=== PATIENT | male | born 1975 | race African-American/Black ===

== ENCOUNTER 2019-12-17 | Emergency (ER) | payer OTHER ==
[~2019-12-17] MED LIST: AMOXICILLIN500 MG OR; AMOXICILLIN500 MG PO; ASPIRIN EC81 MG PO; BACTRIM DS1 TAB PO; BAYER ASA325 MG OR; BENTYL10 MG PO; CEPHALEXIN500 MG OR; CEPHALEXIN500 MG PO; DIABETA2.5 MG OR; FLEXERIL OR; GLIPIZIDE ER2.5 MG PO; HUMALOG100 MG/ML SC; LANTUS100 MG/ML SC; LEVEMIR SC; MEDDOSEPAK OR; METFORMIN1000 MG PO; METRONIDAZOL500 MG PO; MUCINEX D1 TAB PO; NAPROSYN500 MG PO; PENICILLN VK500 MG PO; PRILOSEC20 MG/CAP PO; PROMETHAZINE25 MG OR; ROBITUSSIN AC10 ML PO; ULTRAM50 MG OR; ZITHROMAX250 MG PO; ZOFRAN ODT4 MG PO; [UNRECOGNIZED DRUG - REMARK]
[2019-12-17] MEDS ORDERED: BACTRIM DS1 TAB PO (07:47)
[2019-12-17] MEDS ORDERED: CEPHALEXIN500 M1 PO (07:47)
--- NOTE | 2019-12-19 10:39 | NUR ---
Left message for pt to return call to Pharmacy. Need to review wound culture results and antibiotic therapy with patient.
== END 2019-12-17 09:10 | disposition home or self-care (01) | DRG 153 ==
PROC: 0H98XZZ Drainage of Buttock Skin, External Approach (ICD-10-PCS; principal; 2019-12-17)
DX: J06.9 Acute upper respiratory infection, unspecified (principal); L05.01 Pilonidal cyst with abscess; E11.9 Type 2 diabetes mellitus without complications; F17.200 Nicotine dependence, unspecified, uncomplicated; Z79.84 Long term (current) use of oral hypoglycemic drugs; B95.62 Methicillin resistant Staphylococcus aureus infection as the cause of diseases classified elsewhere

== ENCOUNTER 2019-12-23 | Emergency (ER) | payer OTHER ==
[~2019-12-23] MED LIST changes: +CEPHALEXIN500 M1 PO
[2019-12-23] MEDS ORDERED: BACTRIM DS1 TAB PO (09:44)
[2019-12-23] MEDS ORDERED: CEPHALEXIN500 MG PO (09:44)
== END 2019-12-23 09:59 | disposition home or self-care (01) | DRG 153 ==
DX: J06.9 Acute upper respiratory infection, unspecified (principal); E11.9 Type 2 diabetes mellitus without complications; F17.210 Nicotine dependence, cigarettes, uncomplicated

== ENCOUNTER 2020-04-21 23:22 | Observation (INO) | payer SELFPAY ==
[~2020-04-21] VITALS: Ht 172.7 cm; Wt 75.0 kg
[2020-04-21] MEDS ORDERED: LANTUS100 UNIT/M SC (23:38)
[2020-04-21] MEDS ORDERED: HUMALOG100 UNIT/M SC (23:39)
[2020-04-21] MEDS ORDERED: METFORMIN500 M2 PO (23:39)
[2020-04-21 23:56] LABS: HEMATOCRIT 43.1 % (39.0-50.0); HEMOGLOBIN 14.6 g/dl (14.0-18.0); IMMATURE GRANULOCYTES 0.4 % (0.0-5.0); MEAN CORPUSCULAR HGB 33.2 pG CALC (26.0-32.0); MEAN CORPUSCULAR HGB CONC 33.9 g/dL CAL (32.0-36.0); NEUT# 7.07 thou/uL (1.82-7.42); RED BLOOD COUNT 4.4 mill/uL (4.70-6.10); RED CELL DISTRI WIDTH 11.9 % (11.5-15.5)
[2020-04-21 23:58] LABS: URINE BLOOD DIPSTICK NEGATIVE (NEGATIVE); URINE COLOR YELLOW; URINE GLUCOSE - DIPSTICK 500 mg/dL (NEGATIVE); URINE KETONE 15 mg/dL (NEGATIVE); URINE LEUK ESTERASE NEGATIVE (NEGATIVE); URINE NITRITE - DIPSTICK NEGATIVE (Negative); URINE PROTEIN - DIPSTICK 100 mg/dL (NEG-TRACE); URINE SPECIFIC GRAVITY >=1.030; URINE UROBILINOGEN - DIPSTICK 0.2 E.U./dL (0.2)
[2020-04-22] LABS: URINE BILIRUBIN - DIPSTICK SMALL (NEGATIVE)
[2020-04-22 00:04] LABS: URINE EPITHELIAL CELLS MODERATE EPI/hpf (0-FEW)
[2020-04-22 00:05] LABS: URINE BACTERIA MODERATE hpf; URINE HYALINE CAST MODERATE lpf (NONE-RARE)
[2020-04-22 00:06] LABS: URINE FINE GRAN CAST FEW lpf
[2020-04-22 00:11] LABS: ALBUMIN 4.3 g/dL (3.2-5.0); ALKALINE PHOSPHATASE 86 u/l (38-126); BILIRUBIN, TOTAL 1.4 mg/dL (0.0-1.4); BUN 11 mg/dL (9-20); BUN/CREATININE RATIO 8 (12-20 (CALC)); CHLORIDE 98 mmol/l (95-108); CREATININE 1.4 mg/dL (0.7-1.3); GFR 55 ML/MIN (>=60 (CALC)); GFR FOR AFR.AMER. > 60 ML/MIN (>=60 (CALC)); LIPASE 67 u/l (23-300); POTASSIUM 3.2 mmol/l (3.5-5.1); SGOT/AST 21 u/l (17-59); TOTAL PROTEIN 7.6 g/dL (6.3-8.2)
[2020-04-22 00:17] LABS: ANION GAP 10 (6-22 (CALC)); CARBON DIOXIDE 28 mmol/l (22-30); SODIUM 133 mmol/l (137-146)
[2020-04-22 00:19] LABS: MYOGLOBIN 47 ng/mL (0 - 121)
[2020-04-22 01:56] VITALS: BP 118/76
[2020-04-22 03:42] VITALS: BP 107/65
[2020-04-22 09:04] VITALS: BP 123/71
[2020-04-22 10:30] VITALS: BP 116/71
[2020-04-22] MEDS ORDERED: HUMALOG100 UNIT/M SC (14:11)
[2020-04-22] MEDS ORDERED: METFORMIN500 M2 PO (14:11)
[2020-04-22] MEDS ORDERED: LANTUS100 UNIT/M SC (14:11)
[2020-04-22] MEDS ORDERED: DOXYCYCL HYC100 MG PO (14:19)
[2020-04-22 15:00] VITALS: BP 107/69
== END 2020-04-22 15:50 | disposition home or self-care (01) | DRG 313 ==
LOC: ED 23:22 → ED-I 04-22 00:41 → ED 04-22 00:56 → ED-I 04-22 00:57 → MS2 04-22 01:15
PROVIDERS: Emergency Medicine; ADMIT Internal Medicine; ATTEND Internal Medicine
DX: R07.9 Chest pain, unspecified (principal); N39.0 Urinary tract infection, site not specified; F12.90 Cannabis use, unspecified, uncomplicated; E11.9 Type 2 diabetes mellitus without complications; E78.5 Hyperlipidemia, unspecified; F17.210 Nicotine dependence, cigarettes, uncomplicated; Z79.4 Long term (current) use of insulin; Z20.828 Contact with and (suspected) exposure to other viral communicable diseases
CPT/HCPCS: G0378; S0164

== ENCOUNTER 2020-09-14 21:19 | Emergency (ER) | payer SELFPAY ==
[~2020-09-14] VITALS: Ht 172.7 cm; Wt 77.2 kg
[~2020-09-14 21:19] MED LIST changes: +DOXYCYCL HYC100 MG PO; +HUMALOG100 UNIT/M SC; +LANTUS100 UNIT/M SC; +METFORMIN500 M2 PO
[2020-09-14] MEDS ORDERED: BACTRIM DS1 TAB PO (21:59)
[2020-09-14 22:04] VITALS: BP 126/79
== END 2020-09-14 22:14 | disposition home or self-care (01) | DRG 603 ==
LOC: ED 21:19
PROC: 0H9HXZZ Drainage of Right Upper Leg Skin, External Approach (ICD-10-PCS; principal; 2020-09-14)
DX: L02.415 Cutaneous abscess of right lower limb (principal); L98.9 Disorder of the skin and subcutaneous tissue, unspecified; E11.9 Type 2 diabetes mellitus without complications; K21.9 Gastro-esophageal reflux disease without esophagitis; F17.210 Nicotine dependence, cigarettes, uncomplicated; Z86.14 Personal history of Methicillin resistant Staphylococcus aureus infection; Z79.4 Long term (current) use of insulin

== ENCOUNTER 2020-10-27 12:48 | Emergency (ER) | payer SELFPAY ==
[~2020-10-27] VITALS: Ht 172.7 cm; Wt 77.3 kg
[2020-10-27 14:30] VITALS: BP 133/82
== END 2020-10-27 15:30 | disposition home or self-care (01) | DRG 866 ==
LOC: ED 12:48
DX: B34.9 Viral infection, unspecified (principal); E11.9 Type 2 diabetes mellitus without complications; K21.9 Gastro-esophageal reflux disease without esophagitis; F17.200 Nicotine dependence, unspecified, uncomplicated; Z79.4 Long term (current) use of insulin; Z20.822 Contact with and (suspected) exposure to COVID-19

== ENCOUNTER 2021-01-31 12:56 | Emergency (ER) | payer SELFPAY ==
[2021-01-31] MEDS ORDERED: TESSALON PERLE100 MG PO (16:59)
[2021-01-31 17:00] VITALS: BP 119/68
== END 2021-01-31 17:00 | disposition home or self-care (01) | DRG 866 ==
LOC: ED 12:56
DX: B34.9 Viral infection, unspecified (principal); E11.9 Type 2 diabetes mellitus without complications; K21.9 Gastro-esophageal reflux disease without esophagitis; Z79.4 Long term (current) use of insulin; F17.200 Nicotine dependence, unspecified, uncomplicated; Z20.822 Contact with and (suspected) exposure to COVID-19

== ENCOUNTER 2021-04-10 18:20 | Emergency (ER) | payer SELFPAY ==
[~2021-04-10] VITALS: Ht 172.7 cm; Wt 80.0 kg
[~2021-04-10 18:20] MED LIST changes: +TESSALON PERLE100 MG PO
[2021-04-10] MEDS ORDERED: CIPROFLOXACN500 MG PO (19:06)
[2021-04-10] MEDS ORDERED: BACTRIM DS1 TAB PO (19:06)
[2021-04-10 19:26] VITALS: BP 148/88
== END 2021-04-10 19:26 | disposition home or self-care (01) | DRG 603 ==
LOC: ED 18:20
DX: L03.115 Cellulitis of right lower limb (principal); E11.9 Type 2 diabetes mellitus without complications; Z79.4 Long term (current) use of insulin; K21.9 Gastro-esophageal reflux disease without esophagitis; F17.200 Nicotine dependence, unspecified, uncomplicated; Z86.14 Personal history of Methicillin resistant Staphylococcus aureus infection

== ENCOUNTER 2021-04-12 20:22 | Inpatient (IN) | payer SELFPAY ==
[~2021-04-12] VITALS: Ht 172.7 cm; Wt 73.0 kg
[~2021-04-12 20:22] MED LIST changes: +CIPROFLOXACN500 MG PO
[2021-04-12 21:29] LABS: HEMATOCRIT 39.4 % (39.0-50.0); HEMOGLOBIN 13.2 g/dl (14.0-18.0); IMMATURE GRANULOCYTES 0.4 % (0.0-5.0); MEAN CELL VOLUME 99.5 fL CALC (80.0-100.0); MEAN CORPUSCULAR HGB 33.3 pG CALC (26.0-32.0); MEAN CORPUSCULAR HGB CONC 33.5 g/dL CAL (32.0-36.0); NEUT# 12.9 thou/uL (1.82-7.42); RED BLOOD COUNT 3.96 mill/uL (4.70-6.10); RED CELL DISTRI WIDTH 11.4 % (11.5-15.5)
[2021-04-12 21:40] LABS: ANION GAP 16 (6-22 (CALC)); BUN 15 mg/dL (9-20); BUN/CREATININE RATIO 11 (12-20 (CALC)); CARBON DIOXIDE 29 mmol/l (22-30); CHLORIDE 89 mmol/l (95-108); CREATININE 1.3 mg/dL (0.7-1.3); GFR 60 ML/MIN (>=60 (CALC)); GFR FOR AFR.AMER. > 60 ML/MIN (>=60 (CALC)); SODIUM 129 mmol/l (137-146)
[2021-04-12 21:48] LABS: POTASSIUM 4.6 mmol/l (3.5-5.1)
[2021-04-12 22:11] LABS: ALKALINE PHOSPHATASE 85 u/l (38-126); C-REACTIVE PROTEIN 2.5 mg/dL (0-0.9); SGOT/AST 16 u/l (17-59); TOTAL PROTEIN 7.4 g/dL (6.3-8.2)
[2021-04-12 22:13] LABS: BILIRUBIN, TOTAL 0.4 mg/dL (0.0-1.4)
--- NOTE | 2021-04-12 23:43 | NUR ---
AWAITING URINE SAMPLE. PT AGREES WITH PLAN FOR ADMISSION.
--- NOTE | 2021-04-13 01:00 | NUR ---
REPORT GIVEN TO KASSANDRA HAN FOR ADMIT TO MEDICAL FLOOR.
--- NOTE | 2021-04-13 01:15 | NUR ---
PATIENT BEING TRANSPORTED TO FLOOR VIA WHEELCHAIR BY THIS RN. NO DISTRESS VSS
--- NOTE | 2021-04-13 01:30 | NUR ---
RECEIVED PT FROM ER VIA WHEELCHAIR. PT ORIENTD TO [place], PLACE ATD TIME, REFUSED PAIN AT THIS ITME. EDUCATED ABOUT RULES AND VISITORS HOURS FOR MED SURGE. EDUCATED ABOUT PLAN OF CARE, MEDICATIONS, FALLS AND INFECTIONS PRECAUTIONS. ADMISION DATA DONE, ADMISSION ASSESMENT DOCUMENTED. RT FOOT ARE PULSE PALPABLS, WARM AND DRY.
--- NOTE | 2021-04-13 04:19 | NUR ---
HOURLY VISIT. PT OBSERVED CALM AND SLEEP. RE-EDUCATED ABOIT DIABETIC DIET, FALLS AND INFECTION PREVENTION.
[2021-04-13 04:48] VITALS: BP 102/58
[2021-04-13 07:15] VITALS: BP 115/66
--- NOTE | 2021-04-13 09:05 | NUR ---
S: LAUREN JORDAN is a 45 M who presents with cellulitis. He has a history of DM, +TOB, +ETOH, MRSA. All medications in patient's chart were reviewed. O: VS: BP 115/66 mmHg, PP 66 bpm , RR 18 bpm ,T 97.4 F W 73 KG , HT 68 inch , Scr=1.3 MG/DL ,CrCl= 74.9 ML/MIN A: Blood culture is pending. P: Patient is on ZOSYN 3.375 G Q6H. Vancomycin ordered for pharmacy to dose. Start Vancomycin 1 G IV Q12H. Vancomycin trough is drawn before the 4th dose on 04/14/21 @ 1030. Vancomycin goal trough is between 10-15 mcg/ml. Pharmacy will follow and or advise on antibiotics use as needed.
--- NOTE | 2021-04-13 12:05 | NUR ---
PATIENT LAYING IN BED EATING LUNCH AT THIS TIME. PATIENT STATES HE FOOT IS THROBBING A LITTLE ADVISED PATIENT THAT I WILL LET PHYSICIAN KNOW TO ORDER SOMETHING FOR PAIN. MALGORZATA LOO APRN NOTIFIED AT THIS TIME. CHEO ARE UP CALL LIGHT [facility].
[2021-04-13 12:43] LABS: ALBUMIN 3.3 g/dL (3.2-5.0); ALKALINE PHOSPHATASE 71 u/l (38-126); BUN 17 mg/dL (9-20); BUN/CREATININE RATIO 12 (12-20 (CALC)); CARBON DIOXIDE 26 mmol/l (22-30); CREATININE 1.5 mg/dL (0.7-1.3); GFR 51 ML/MIN (>=60 (CALC)); GFR FOR AFR.AMER. > 60 ML/MIN (>=60 (CALC)); POTASSIUM 3.9 mmol/l (3.5-5.1); SGOT/AST 20 u/l (17-59); SODIUM 134 mmol/l (137-146); TOTAL PROTEIN 6.5 g/dL (6.3-8.2)
[2021-04-13 12:49] LABS: ANION GAP 11 (6-22 (CALC)); BILIRUBIN, TOTAL 0.9 mg/dL (0.0-1.4); CHLORIDE 101 mmol/l (95-108)
--- NOTE | 2021-04-13 15:53 | NUR ---
PATIENT GIVEN LORITAB 5/325MG FOR PAIN OF 5 IN RIGHT FOOT AT THIS TIME. WILL CONTINUE TO MONITOR.
--- NOTE | 2021-04-13 17:35 | NUR ---
PATIENT RESTING IN BED AT THIS TIME. SIDERAILS ARE UP CALL LIGHT WITHIN REACH AT THIS TIME.
[2021-04-13 18:50] VITALS: BP 111/67
[2021-04-13 19:49] VITALS: BP 110/64
--- NOTE | 2021-04-13 20:00 | NUR ---
PATIENT ALERT ORINTED ABLE TO MAKE NEEDS KNONW, WITH ONGOING IV OF NS @ 125CC/HR INFUSING WELL ON RFA, LUNG SOUNDS CLEAR, ACTIVE BOWEL SOUNDS LBM 04/13, C/O PAIN ON RT FOOT, WILL MEDICATE, FOOT ULCER ON RT FOOT OPEN TO AIR PER ORDER, CALL LIGHT AT REACH.
--- NOTE | 2021-04-14 | NUR ---
PATIENT RESTING IN BED, EYES CLOSED, VANCOMYCIN IV INFUSING AT THIS TIME, BREATHING UNLABORED CALL LIGHT AT REACH.
--- NOTE | 2021-04-14 04:30 | NUR ---
PATIENT RESTING IN BED EYES CLOSED, DUE ZOSYN GIVEN AT THIS TIME, CALL LIGHT AT REACH.
[2021-04-14 05:14] VITALS: BP 127/73
[2021-04-14 05:20] LABS: HEMATOCRIT 37.5 % (39.0-50.0); HEMOGLOBIN 12.6 g/dl (14.0-18.0); MEAN CELL VOLUME 100.3 fL CALC (80.0-100.0); MEAN CORPUSCULAR HGB 33.7 pG CALC (26.0-32.0); MEAN CORPUSCULAR HGB CONC 33.6 g/dL CAL (32.0-36.0); RED BLOOD COUNT 3.74 mill/uL (4.70-6.10); RED CELL DISTRI WIDTH 11.3 % (11.5-15.5)
[2021-04-14 05:54] LABS: ALBUMIN 3.2 g/dL (3.2-5.0); ALKALINE PHOSPHATASE 70 u/l (38-126); ANION GAP 10 (6-22 (CALC)); BILIRUBIN, TOTAL 0.6 mg/dL (0.0-1.4); BUN 12 mg/dL (9-20); BUN/CREATININE RATIO 13 (12-20 (CALC)); CARBON DIOXIDE 26 mmol/l (22-30); CHLORIDE 104 mmol/l (95-108); GFR > 60 ML/MIN (>=60 (CALC)); GFR FOR AFR.AMER. > 60 ML/MIN (>=60 (CALC)); SGOT/AST 21 u/l (17-59); SODIUM 136 mmol/l (137-146); TOTAL PROTEIN 6.4 g/dL (6.3-8.2)
[2021-04-14 06:37] LABS: URINE BILIRUBIN - DIPSTICK NEGATIVE (NEGATIVE); URINE BLOOD DIPSTICK NEGATIVE (NEGATIVE); URINE COLOR YELLOW; URINE GLUCOSE - DIPSTICK 500 mg/dL (NEGATIVE); URINE KETONE NEGATIVE (NEGATIVE); URINE LEUK ESTERASE NEGATIVE (NEGATIVE); URINE PH 5.5 (4.5-8.0); URINE PROTEIN - DIPSTICK TRACE mg/dL (NEG-TRACE); URINE SPECIFIC GRAVITY >=1.030; URINE UROBILINOGEN - DIPSTICK 0.2 E.U./dL (0.2)
[2021-04-14 06:39] LABS: URINE NITRITE - DIPSTICK NEGATIVE (Negative)
--- NOTE | 2021-04-14 07:00 | NUR ---
SHIFT CHANGE REPORT, PT SLEELPING BUT AROUSES TO VERBAL STIMULI, ORIENED, IVF INFUSING, C/O RIGHT FOOT PAIN, PAIN CONCERN ADDRESSED, CALL NICOLE IN REACH AND BED LOCKED IN LOWEST POSITION.
[2021-04-14 08:31] VITALS: BP 133/77
--- NOTE | 2021-04-14 10:45 | NUR ---
PT FOUND IN BR SHOWERING, DID NOT INFORM STAFF HE WANTED TO SHOWER THEREFORE IV SITE NOT COVERED. EDUCATED/INFORMED ON ASKING FOR ASSISTANCE FOR SAFE PERFORMANCE OF ADL'S, STATED UNDERSTANDING.
--- NOTE | 2021-04-14 11:00 | NUR ---
TRANSPORTED OFF UNIT VIA W/C TO IMAGING PROCEDURE AND RETURNED, SETTLED IN BED, CALL NICOLE IN REACH.
--- NOTE | 2021-04-14 12:59 | NUR ---
S: LAUREN JORDAN is a 45 M who presents with Cellulitis. He has a history of Diabetis Mellitus, Hyperlipidemia,MRSA and GERD. All medications in patient's chart were reviewed. O: VS: BP 133/77 mmHg, P 68 bpm, RR 18 bpm,T 98.3 F W 73kg, HT 68 inches, Scr= 1.0 mg.dL,CrCl= 97.33 <ml/min> Vancomycin Trough Level 7 ug/mL A: Blood culture is pending. Wound culture is pending. P: Patient is on Zosyn 3.375g IV Q6H. Vancomycin ordered for pharmacy to dose. Continue Vancomycin 1250mg IV Q12H. Vancomycin trough is drawn before the 4th dose on 04/14/21 2230. Vancomycin goal trough is between 10-15 mcg/ml. Pharmacy will follow and or advise on antibiotics use as needed.
[2021-04-14 15:39] VITALS: BP 110/65
--- NOTE | 2021-04-14 16:00 | NUR ---
RESTING IN BED, SPOUSE VISITING, STATES FOOT PAIN NOT CONTROLLED WELL, WARM COMPRESS APPLIED AND FOOT ELEVATED
--- NOTE | 2021-04-14 17:28 | NUR ---
PATIENT ACCUCHECK 70, NURSE NOTIFIED.
[2021-04-14 19:00] VITALS: BP 122/70
--- NOTE | 2021-04-14 22:03 | NUR ---
PATIENT RESTING QUIETLY IN BED. RIGHT FOOT ELEVATED. C/O PAIN ADDRESSED WITH PRN LORTAB WITH SOME GOOD EFFECT. ASSESSMENT COMPLETED AND CHARTED. BED IN LOW POSITION. CALL LIGHT WITHIN REACH.
--- NOTE | 2021-04-15 01:37 | NUR ---
PATIENT RESTING QUIETLY. NO ACUTE DISTRESS. WARM COMPRESS TO RLE.
[2021-04-15 04:00] VITALS: BP 113/67
[2021-04-15 06:14] LABS: ANION GAP 10 (6-22 (CALC)); BUN 6 mg/dL (9-20); BUN/CREATININE RATIO 8 (12-20 (CALC)); CARBON DIOXIDE 26 mmol/l (22-30); CHLORIDE 105 mmol/l (95-108); CREATININE 0.8 mg/dL (0.7-1.3); GFR > 60 ML/MIN (>=60 (CALC)); GFR FOR AFR.AMER. > 60 ML/MIN (>=60 (CALC)); POTASSIUM 3.9 mmol/l (3.5-5.1); SODIUM 137 mmol/l (137-146)
[2021-04-15 06:23] LABS: HEMATOCRIT 39.7 % (39.0-50.0); MEAN CELL VOLUME 102.3 fL CALC (80.0-100.0); MEAN CORPUSCULAR HGB 33.5 pG CALC (26.0-32.0); MEAN CORPUSCULAR HGB CONC 32.7 g/dL CAL (32.0-36.0); RED BLOOD COUNT 3.88 mill/uL (4.70-6.10); RED CELL DISTRI WIDTH 11.5 % (11.5-15.5)
--- NOTE | 2021-04-15 07:10 | NUR ---
BLOOD GLUCOSE MEASURED AT THIS TIME = 59, ONish AND MEMO GARRETT OFFERED, BG UP TO 80 ON RECHECK, NO ABNORMAL SYMPTOMS REPORTED, WILL CONTINUE TO MONITOR.
[2021-04-15 07:37] VITALS: BP 126/73
--- NOTE | 2021-04-15 08:09 | NUR ---
SHIFT CHANGE REPORT, PT AWAKE ALERT AND ORIENTED X 3, C/O THROBBING PAIN @ 6/10 TO RIGHT FOOT, IVF INFUSING, PT REQUESTING TO BE DISCONNECTED TO HAVE SHOWER, REQUEST HONORED, WILL CONTINUE TO MONITOR.
--- NOTE | 2021-04-15 12:00 | NUR ---
FOOT PAIN SLIGHTLY IMPROVING WITH SALINAS MED, WARM COMPRESS AMD ELEVATION.
[2021-04-15 15:00] VITALS: BP 129/75
--- NOTE | 2021-04-15 16:00 | NUR ---
RESTING IN BED, ALL NEEDS MET/ADDRESSED.
--- NOTE | 2021-04-15 18:30 | NUR ---
CULTURE HAVE BEEN ORDERED FOR RIGHT FOOT WOUND SINCE YESTERDAY, LAB CALLED REQUESTING SPECIMEN, INFORMED THERE IS NO DRAINAGE TO OBTAIN SPECIMEN, AREA IS INTACT WITH SMALL SCAB; HOWEVER, INVENTORY ASSOCIATE AND DRIVER IS ON CONSULT AND SHOULD BE HERE TOMORROW TO SEE PT SO WE HOPE SECIMEN CAN BE COLLECTED DEPENDING ON WHAT HIS PLANS ARE, WILL COMMUNICATE TO ONCOMING SHIFT STAFF.
[2021-04-15 18:57] VITALS: BP 118/64
[2021-04-16 03:52] VITALS: BP 156/98
--- NOTE | 2021-04-16 04:06 | NUR ---
PT MEDICATED FOR PAIN 10/10 ON PAIN SCALE. PT IS WRITHING IN PAIN. R.FOOT IS ELEVATED AT THIS TIME.
--- NOTE | 2021-04-16 04:16 | NUR ---
PATIENT C/O PAIN. MEDICATED AND WILL REASSESS
[2021-04-16 05:47] LABS: HEMATOCRIT 33.9 % (39.0-50.0); HEMOGLOBIN 11.3 g/dl (14.0-18.0); MEAN CELL VOLUME 103.7 fL CALC (80.0-100.0); MEAN CORPUSCULAR HGB 34.6 pG CALC (26.0-32.0); MEAN CORPUSCULAR HGB CONC 33.3 g/dL CAL (32.0-36.0); RED BLOOD COUNT 3.27 mill/uL (4.70-6.10); RED CELL DISTRI WIDTH 11.6 % (11.5-15.5)
[2021-04-16 06:06] LABS: ANION GAP 10 (6-22 (CALC)); BUN 7 mg/dL (9-20); BUN/CREATININE RATIO 9 (12-20 (CALC)); CARBON DIOXIDE 26 mmol/l (22-30); CHLORIDE 105 mmol/l (95-108); CREATININE 0.8 mg/dL (0.7-1.3); GFR > 60 ML/MIN (>=60 (CALC)); GFR FOR AFR.AMER. > 60 ML/MIN (>=60 (CALC)); MAGNESIUM 1.6 mg/dL (1.6-2.3); POTASSIUM 4.2 mmol/l (3.5-5.1); SODIUM 137 mmol/l (137-146)
--- NOTE | 2021-04-16 07:00 | NUR ---
SHIFT REPORT, ALERT AND ORIENTED, C/O RIGHT FOOT PAIN @ 9/10, IVF INFUSING, FOOT ELEVATED, WARM COMPRESS APPLIED, CALL NICOLE IN REACH.
[2021-04-16 08:17] VITALS: BP 167/84
--- NOTE | 2021-04-16 09:10 | NUR ---
TRANSPORTED HIGH UNIT VIA W/C TO PROCEDURE.
--- NOTE | 2021-04-16 10:28 | NUR ---
S: LAUREN JORDAN is a 45 M who presents with cellulitis. He has a history of DM, +TOB, +EtOH, MRSA(BUTTOCKS) and GERD. All medications in patient's chart were reviewed. O: VS: BP 167/84 mmHg, P 64 bpm, RR 21 bpm, T 97.7 F W 73 kg, HT 68 in, Scr= 0.8, CrCl= 121.6 ml/min Vancomycin trough 10 ug/mL A: Vancomycin trough is at therapeutic level. Blood culture shows no growth. Wound culture is pending. P: Patient is on Zosyn 3.375 gm IV Q6H. Vancomycin ordered for pharmacy to dose. Continue Vancomycin 1250 mg IV Q12H. Vancomycin trough is drawn before the 4th dose on 04/17 at 1130. Vancomycin goal trough is between 10-15 mcg/ml. Pharmacy will follow and or advise on antibiotics use as needed.
[2021-04-16 19:27] VITALS: BP 127/75
--- NOTE | 2021-04-16 20:45 | NUR ---
PT IN BED RESTING QUIETLY, NO COMPLAINTS VOICED. BREATHING EVEN AND UNLABORED. AREA TO RIGHT FOOT, BLANCHABLE SURROUNDING TISSUE, NO S/S OF INFECTION NOTED AT THIS TIME. SLIGHT AREA IN SURROUNDING TISSUE IS DARK IN COLOR. SAFETY PRECAUTIONS IN PLACE, BED IN LOWEST POSITION, CALL LIGHT WITHIN REACH
--- NOTE | 2021-04-17 00:15 | NUR ---
PT RESTING QUIETLY IN BED, NO COMPLAINTS VOICED. BREATHING EVEN AND UNLABORED. NO S/S OF DISTRESS NOTED. RIGHT FOOT ELEVATED ON PILLOWS. SAFETY PRECAUTIONS REMAIN IN PLACE, WILL MONITOR
[2021-04-17 04:00] VITALS: BP 115/64
--- NOTE | 2021-04-17 04:25 | NUR ---
PT RESTING QUIETLY AT THIS TIME, NO COMPLAINTS VOICED. DENIES PAIN AT THIS TIME. BREATHING EVEN AND UNLABORED. R FOOT REAMINS ELEVATED. SAFETY PRECAUTIONS IN PLACE, WILL MONITOR
[2021-04-17 05:06] LABS: HEMATOCRIT 30.8 % (39.0-50.0); HEMOGLOBIN 10.2 g/dl (14.0-18.0); MEAN CELL VOLUME 103.7 fL CALC (80.0-100.0); MEAN CORPUSCULAR HGB 34.3 pG CALC (26.0-32.0); MEAN CORPUSCULAR HGB CONC 33.1 g/dL CAL (32.0-36.0); RED BLOOD COUNT 2.97 mill/uL (4.70-6.10); RED CELL DISTRI WIDTH 11.7 % (11.5-15.5)
[2021-04-17 05:24] LABS: ANION GAP 8 (6-22 (CALC)); BUN 14 mg/dL (9-20); BUN/CREATININE RATIO 15 (12-20 (CALC)); CARBON DIOXIDE 27 mmol/l (22-30); CHLORIDE 105 mmol/l (95-108); CREATININE 0.9 mg/dL (0.7-1.3); GFR > 60 ML/MIN (>=60 (CALC)); GFR FOR AFR.AMER. > 60 ML/MIN (>=60 (CALC)); POTASSIUM 4.1 mmol/l (3.5-5.1); SODIUM 136 mmol/l (137-146)
[2021-04-17 07:35] VITALS: BP 110/63
--- NOTE | 2021-04-17 07:36 | NUR ---
PT SLEEP UPON ENTERING ROOM. PT IS ALERT AND ORIENTED. VITALS AND ASSESSMENT DONE. S1 AND S2 NOTED. LUNG SOUNDS CLEAR. BOWEL SOUNDS ACTIVE IN ALL 4 QUADRANTS. PEDAL PULSES EQUALLY STRONG BILATERALLY. IV PATENT AND HEALTHY. NO DISTRESS NOTED. CALL LIGHT WITHIN REACH.
--- NOTE | 2021-04-17 11:26 | NUR ---
DR. DIALLO AND Prasad THOMPSON AT BEDSIDE DISCUSSING POC.
--- NOTE | 2021-04-17 12:00 | NUR ---
PT IN BED. NO DISTRESS NOTED. CALL LIGHT WITHIN REACH.
[2021-04-17] MEDS ORDERED: NOVOLIN N100 UNIT/4 SC (12:54)
[2021-04-17] MEDS ORDERED: PREDNISONE10 MG PO (12:58)
--- NOTE | 2021-04-17 14:44 | NUR ---
Discharge instructions given. Patient verbalizes understanding of same. Discharged in stable condition via wheelchair to home with staff. All belongings sent with pt. Community resources to establish with pcp given, crutches also provided. Pt instructed to complete abx. Good RX cards given to be used for new prescriptions.
== END 2021-04-17 14:44 | disposition home or self-care (01) | DRG 603 ==
LOC: ED 20:22 → ED-I 23:17 → ED 23:35 → MS2 23:36
PROVIDERS: Family Medicine; Nurse Practitioner; Nurse Practitioner Family; ADMIT Internal Medicine; ATTEND Internal Medicine
DX: L03.115 Cellulitis of right lower limb (principal); E11.65 Type 2 diabetes mellitus with hyperglycemia; M10.071 Idiopathic gout, right ankle and foot; K21.9 Gastro-esophageal reflux disease without esophagitis; E78.5 Hyperlipidemia, unspecified; F17.200 Nicotine dependence, unspecified, uncomplicated; T38.3X6A Underdosing of insulin and oral hypoglycemic [antidiabetic] drugs, initial encounter; Z91.120 Patient's intentional underdosing of medication regimen due to financial hardship; Z79.4 Long term (current) use of insulin; Z86.14 Personal history of Methicillin resistant Staphylococcus aureus infection; Z20.822 Contact with and (suspected) exposure to COVID-19
CPT/HCPCS: A9579; J1650; J3370; Q9967

== ENCOUNTER 2021-07-02 09:24 | Emergency (ER) | payer SELFPAY ==
[~2021-07-02] VITALS: Ht 152.4 cm; Wt 72.6 kg
[~2021-07-02 09:24] MED LIST changes: +NOVOLIN N100 UNIT/4 SC; +PREDNISONE10 MG PO
[2021-07-02] MEDS ORDERED: METFORMIN HCL1000 MG PO (10:15)
[2021-07-02 10:37] LABS: GFR > 60 ML/MIN (>=60 (CALC)); GFR FOR AFR.AMER. > 60 ML/MIN (>=60 (CALC))
[2021-07-02 10:38] LABS: IMMATURE GRANULOCYTES 0.2 % (0.0-5.0); MEAN CELL VOLUME 101.4 fL CALC (80.0-100.0); MEAN CORPUSCULAR HGB 34.3 pG CALC (26.0-32.0); MEAN CORPUSCULAR HGB CONC 33.8 g/dL CAL (32.0-36.0); NEUT# 11.28 thou/uL (1.82-7.42); RED BLOOD COUNT 4.17 mill/uL (4.70-6.10)
[2021-07-02 10:39] LABS: URINE BILIRUBIN - DIPSTICK NEGATIVE (NEGATIVE); URINE BLOOD DIPSTICK NEGATIVE (NEGATIVE); URINE COLOR YELLOW; URINE GLUCOSE - DIPSTICK >=1000 mg/dL (NEGATIVE); URINE KETONE NEGATIVE (NEGATIVE); URINE LEUK ESTERASE NEGATIVE (NEGATIVE); URINE PH 6.5 (4.5-8.0); URINE PROTEIN - DIPSTICK NEGATIVE (NEG-TRACE); URINE UROBILINOGEN - DIPSTICK 0.2 E.U./dL (0.2)
[2021-07-02 10:42] LABS: HEMATOCRIT 42.3 % (39.0-50.0); HEMOGLOBIN 14.3 g/dl (14.0-18.0); URINE NITRITE - DIPSTICK NEGATIVE (Negative)
[2021-07-02 10:57] LABS: ALKALINE PHOSPHATASE 78 u/l (38-126); ANION GAP 11 (6-22 (CALC)); BUN 11 mg/dL (9-20); BUN/CREATININE RATIO 12 (12-20 (CALC)); CARBON DIOXIDE 28 mmol/l (22-30); CHLORIDE 102 mmol/l (95-108); CREATININE 0.9 mg/dL (0.7-1.3); GFR > 60 ML/MIN (>=60 (CALC)); GFR FOR AFR.AMER. > 60 ML/MIN (>=60 (CALC)); LIPASE 102 u/l (23-300); POTASSIUM 3.8 mmol/l (3.5-5.1); SGOT/AST 22 u/l (17-59); SODIUM 138 mmol/l (137-146); TOTAL PROTEIN 7.4 g/dL (6.3-8.2)
[2021-07-02 10:59] LABS: ALBUMIN 4.1 g/dL (3.2-5.0); BILIRUBIN, TOTAL 1.2 mg/dL (0.0-1.4)
[2021-07-02] MEDS ORDERED: ONDANSETRON4 MG PO (11:44)
[2021-07-02 12:10] VITALS: BP 132/75
== END 2021-07-02 12:34 | disposition home or self-care (01) | DRG 392 ==
LOC: ED 09:24
PROVIDERS: Family Medicine
DX: R10.12 Left upper quadrant pain (principal); R10.32 Left lower quadrant pain; E11.9 Type 2 diabetes mellitus without complications; F17.200 Nicotine dependence, unspecified, uncomplicated; Z79.4 Long term (current) use of insulin; Z20.822 Contact with and (suspected) exposure to COVID-19
CPT/HCPCS: Q9967

== ENCOUNTER 2021-09-10 13:11 | Emergency (ER) | payer MEDICAID ==
[~2021-09-10] VITALS: Ht 172.7 cm; Wt 74.0 kg
[~2021-09-10 13:11] MED LIST changes: +METFORMIN HCL1000 MG PO; +ONDANSETRON4 MG PO
[2021-09-10 14:46] LABS: HEMATOCRIT 41.9 % (39.0-50.0); IMMATURE GRANULOCYTES 0.2 % (0.0-5.0); MEAN CELL VOLUME 102.7 fL CALC (80.0-100.0); MEAN CORPUSCULAR HGB 34.3 pG CALC (26.0-32.0); MEAN CORPUSCULAR HGB CONC 33.4 g/dL CAL (32.0-36.0); NEUT# 7.19 thou/uL (1.82-7.42); RED BLOOD COUNT 4.08 mill/uL (4.70-6.10); RED CELL DISTRI WIDTH 11.9 % (11.5-15.5)
[2021-09-10 15:04] LABS: ALBUMIN 4.3 g/dL (3.2-5.0); ALKALINE PHOSPHATASE 73 u/l (38-126); AMYLASE 73 u/l (30-110); ANION GAP 13 (6-22 (CALC)); BILIRUBIN, TOTAL 1.4 mg/dL (0.0-1.4); BUN 11 mg/dL (9-20); BUN/CREATININE RATIO 12 (12-20 (CALC)); CARBON DIOXIDE 27 mmol/l (22-30); CHLORIDE 101 mmol/l (95-108); CREATININE 0.9 mg/dL (0.7-1.3); ETHYL ALCOHOL 0 mg/dl (0-30); GFR > 60 ML/MIN (>=60 (CALC)); GFR FOR AFR.AMER. > 60 ML/MIN (>=60 (CALC)); LIPASE 70 u/l (23-300); SGOT/AST 21 u/l (17-59); SODIUM 137 mmol/l (137-146); TOTAL PROTEIN 7.9 g/dL (6.3-8.2)
[2021-09-10 15:59] LABS: URINE BILIRUBIN - DIPSTICK NEGATIVE (NEGATIVE); URINE BLOOD DIPSTICK NEGATIVE (NEGATIVE); URINE COLOR YELLOW; URINE GLUCOSE - DIPSTICK >=1000 mg/dL (NEGATIVE); URINE KETONE 15 mg/dL (NEGATIVE); URINE LEUK ESTERASE NEGATIVE (NEGATIVE); URINE NITRITE - DIPSTICK NEGATIVE (Negative); URINE PH 5.5 (4.5-8.0); URINE PROTEIN - DIPSTICK 30 mg/dL (NEG-TRACE); URINE SPECIFIC GRAVITY 1.025; URINE UROBILINOGEN - DIPSTICK 0.2 E.U./dL (0.2)
[2021-09-10 16:08] LABS: URINE HYALINE CAST FEW lpf (NONE-RARE); URINE MUCUS FEW hpf (NONE-FEW); URINE RBC 0-2 RBC/hpf (0-5); URINE SQUAMOUS EPITHELIAL CELL FEW EPI/hpf (0-FEW); URINE WBC 0-2 WBC/hpf (0-5)
[2021-09-10] MEDS ORDERED: PREVACID30 M3 PO (16:52)
[2021-09-10] MEDS ORDERED: ULTRAM50 M1 PO (16:52)
[2021-09-10] MEDS ORDERED: ONDANSETRON4 MG PO (16:52)
[2021-09-10 17:15] VITALS: BP 129/58
== END 2021-09-10 17:26 | disposition home or self-care (01) ==
LOC: ED 13:11
PROVIDERS: Emergency Medicine
DX: K29.70 Gastritis, unspecified, without bleeding (principal); E11.9 Type 2 diabetes mellitus without complications; F17.200 Nicotine dependence, unspecified, uncomplicated; Z79.84 Long term (current) use of oral hypoglycemic drugs; Z79.4 Long term (current) use of insulin
CPT/HCPCS: Q9967; S0164

== ENCOUNTER 2022-03-15 05:45 | Emergency (ER) | payer MEDICAID ==
[~2022-03-15] VITALS: Ht 172.7 cm; Wt 72.7 kg
[~2022-03-15 05:45] MED LIST changes: +PREVACID30 M3 PO; +ULTRAM50 M1 PO
[2022-03-15 05:52] VITALS: BP 104/76
[2022-03-15 06:01] VITALS: BP 102/73
[2022-03-15 06:15] VITALS: BP 101/66
[2022-03-15] MEDS ORDERED: VOLTAREN75 MG PO (06:26)
[2022-03-15] MEDS ORDERED: TRAMADOL HCL50 MG PO (06:26)
[2022-03-15 06:31] VITALS: BP 118/93
[2022-03-15 06:36] VITALS: BP 118/93
== END 2022-03-15 06:44 | disposition home or self-care (01) ==
LOC: ED 05:45
DX: S62.304A Unspecified fracture of fourth metacarpal bone, right hand, initial encounter for closed fracture (principal); S62.306A Unspecified fracture of fifth metacarpal bone, right hand, initial encounter for closed fracture; E11.9 Type 2 diabetes mellitus without complications; F17.210 Nicotine dependence, cigarettes, uncomplicated; W20.8XXA Other cause of strike by thrown, projected or falling object, initial encounter; Y93.89 Activity, other specified; Y92.009 Unspecified place in unspecified non-institutional (private) residence as the place of occurrence of the external cause; Z79.4 Long term (current) use of insulin; Z79.84 Long term (current) use of oral hypoglycemic drugs

== ENCOUNTER 2022-03-25 21:24 | Emergency (ER) | payer MEDICAID ==
[~2022-03-25] VITALS: Ht 172.7 cm; Wt 70.0 kg
[2022-03-25] VITALS (11 sets, daily range): BP systolic 122–155; BP diastolic 67–82
[~2022-03-25 21:24] MED LIST changes: +TRAMADOL HCL50 MG PO; +VOLTAREN75 MG PO
[2022-03-25 22:00] LABS: HEMATOCRIT 40.9 % (39.0-50.0); IMMATURE GRANULOCYTES 0.2 % (0.0-5.0); MEAN CELL VOLUME 98.8 fL CALC (80.0-100.0); MEAN CORPUSCULAR HGB 33.8 pG CALC (26.0-32.0); MEAN CORPUSCULAR HGB CONC 34.2 g/dL CAL (32.0-36.0); NEUT# 13.53 thou/uL (1.82-7.42); RED BLOOD COUNT 4.14 mill/uL (4.70-6.10); RED CELL DISTRI WIDTH 11.6 % (11.5-15.5)
[2022-03-25 22:18] LABS: ALBUMIN 4.6 g/dL (3.2-5.0); ALKALINE PHOSPHATASE 96 u/l (38-126); AMYLASE 108 u/l (30-110); ANION GAP 15 (6-22 (CALC)); BUN 18 mg/dL (9-20); BUN/CREATININE RATIO 19 (12-20 (CALC)); CARBON DIOXIDE 24 mmol/l (22-30); CHLORIDE 101 mmol/l (95-108); ETHYL ALCOHOL 0 mg/dl (0-30); GFR FOR AFR.AMER. > 60 ML/MIN (>=60 (CALC)); GFR OTHER RACES > 60 ML/MIN (>=60 (CALC)); LIPASE 214 u/l (23-300); POTASSIUM 3.8 mmol/l (3.5-5.1); SODIUM 136 mmol/l (137-146); TOTAL PROTEIN 8.3 g/dL (6.3-8.2)
[2022-03-25 22:20] LABS: D-DIMER 0.42 mg/L (0.19-0.60)
[2022-03-25 22:24] LABS: SGOT/AST 85 u/l (17-59)
[2022-03-25 22:25] LABS: ACT PARTIAL THROMBO TIME 24.8 SECONDS (20.0-32.5); PROTHROMBIN TIME 10.9 SECONDS (9.0-12.5)
[2022-03-25 22:29] LABS: MYOGLOBIN 95 ng/mL (0 - 121)
== END 2022-03-25 23:30 | disposition short-term general hospital (02) ==
LOC: ED 21:24
PROVIDERS: Family Medicine
DX: R07.9 Chest pain, unspecified (principal); R79.89 Other specified abnormal findings of blood chemistry; E11.9 Type 2 diabetes mellitus without complications; F17.200 Nicotine dependence, unspecified, uncomplicated; Z79.4 Long term (current) use of insulin

== ENCOUNTER 2023-02-06 21:29 | Emergency (ER) | payer OTHER ==
[~2023-02-06] VITALS: Ht 172.7 cm; Wt 68.0 kg
[2023-02-06] MEDS ORDERED: VOLTAREN - GENE75 MG PO (22:01)
[2023-02-06] MEDS ORDERED: BACTRIM DS1 TAB PO (22:01)
[2023-02-06 22:12] VITALS: BP 123/91
== END 2023-02-06 22:22 | disposition home or self-care (01) ==
LOC: ED 21:29
DX: L73.8 Other specified follicular disorders (principal); E11.9 Type 2 diabetes mellitus without complications; F17.200 Nicotine dependence, unspecified, uncomplicated; Z79.84 Long term (current) use of oral hypoglycemic drugs; Z79.4 Long term (current) use of insulin

== ENCOUNTER 2023-04-09 09:18 | Observation (INO) | payer OTHER ==
[2023-04-09] VITALS (8 sets, daily range): BP systolic 101–133; BP diastolic 60–113
[~2023-04-09] VITALS: Ht 172.7 cm; Wt 61.2 kg
[~2023-04-09 09:18] MED LIST changes: +VOLTAREN - GENE75 MG PO
[2023-04-09 09:47] LABS: BASO% 0.2 % (0-3); EOS% 1.2 % (0-8); HEMATOCRIT 40.7 % (39.0-50.0); HEMOGLOBIN 13.4 g/dl (14.0-18.0); IMMATURE GRANULOCYTES 0.2 % (0.0-5.0); LYMPH% 21.4 % (15-41); MEAN CELL VOLUME 101.2 fL CALC (80.0-100.0); MEAN CORPUSCULAR HGB 33.3 pG CALC (26.0-32.0); MEAN CORPUSCULAR HGB CONC 32.9 g/dL CAL (32.0-36.0); MONO% 9.7 % (2-13); NEUT# 7.79 thou/uL (1.82-7.42); NEUT% 67.3 % (42-76); RED BLOOD COUNT 4.02 mill/uL (4.70-6.10); RED CELL DISTRI WIDTH 11.9 % (11.5-15.5)
[2023-04-09 09:58] LABS: ALKALINE PHOSPHATASE 84 u/l (38-126); ANION GAP 16 (6-22 (CALC)); BILIRUBIN, TOTAL 1.1 mg/dL (0.2-1.3); BUN 11 mg/dL (9-20); BUN/CREATININE RATIO 13 (12-20 (CALC)); CARBON DIOXIDE 22 mmol/l (22-30); CHLORIDE 98 mmol/l (95-108); CREATININE 0.9 mg/dL (0.7-1.3); GFR FOR AFR.AMER. > 60 ML/MIN (>=60 (CALC)); GFR OTHER RACES > 60 ML/MIN (>=60 (CALC)); POTASSIUM 4.2 mmol/l (3.5-5.1); SGOT/AST 34 u/l (17-59); SODIUM 132 mmol/l (137-146); TOTAL PROTEIN 7.3 g/dL (6.3-8.2)
[2023-04-09] MEDS ORDERED: TOPROL XL25 MG PO (11:00)
[2023-04-09] MEDS ORDERED: PAROXETINE HCL20 MG PO (11:01)
[2023-04-09] MEDS ORDERED: CLOPIDOGREL75 MG PO (11:01)
[2023-04-09] MEDS ORDERED: ATORVASTATIN CA80 MG PO (11:01)
[2023-04-09] MEDS ORDERED: JARDIANCE25 MG (11:02)
[2023-04-10 03:19] VITALS: BP 146/83
[2023-04-10 05:37] LABS: BASO% 0.2 % (0-3); EOS% 1.7 % (0-8); HEMOGLOBIN 11.9 g/dl (14.0-18.0); IMMATURE GRANULOCYTES 0.1 % (0.0-5.0); LYMPH% 20.6 % (15-41); MEAN CELL VOLUME 101.7 fL CALC (80.0-100.0); MEAN CORPUSCULAR HGB 33.6 pG CALC (26.0-32.0); MEAN CORPUSCULAR HGB CONC 33.1 g/dL CAL (32.0-36.0); MONO% 10.7 % (2-13); NEUT# 9.24 thou/uL (1.82-7.42); NEUT% 66.7 % (42-76); RED BLOOD COUNT 3.54 mill/uL (4.70-6.10); RED CELL DISTRI WIDTH 11.9 % (11.5-15.5)
[2023-04-10 05:42] LABS: ALBUMIN 3.5 g/dL (3.2-5.0); ALKALINE PHOSPHATASE 78 u/l (38-126); ANION GAP 11 (6-22 (CALC)); BILIRUBIN, TOTAL 0.8 mg/dL (0.2-1.3); BUN 14 mg/dL (9-20); BUN/CREATININE RATIO 16 (12-20 (CALC)); CARBON DIOXIDE 26 mmol/l (22-30); CHLORIDE 101 mmol/l (95-108); CREATININE 0.9 mg/dL (0.7-1.3); GFR FOR AFR.AMER. > 60 ML/MIN (>=60 (CALC)); GFR OTHER RACES > 60 ML/MIN (>=60 (CALC)); MAGNESIUM 1.6 mg/dL (1.6-2.3); POTASSIUM 4.2 mmol/l (3.5-5.1); SGOT/AST 22 u/l (17-59); SODIUM 134 mmol/l (137-146); TOTAL PROTEIN 6.4 g/dL (6.3-8.2)
[2023-04-10 08:45] VITALS: BP 141/86
[2023-04-10 08:52] VITALS: BP 141/86
[2023-04-10] MEDS ORDERED: METFORMIN HCL500 M1 PO (11:13)
[2023-04-10] MEDS ORDERED: LEVEMIR100 UNIT SC (11:14)
[2023-04-10] MEDS ORDERED: AMOX/K CLAV875 M1 PO (11:17)
== END 2023-04-10 12:24 | disposition home or self-care (01) ==
LOC: ED 09:18 → MS2 10:38
PROVIDERS: Family Medicine; ADMIT Internal Medicine; ATTEND Internal Medicine
DX: I25.119 Atherosclerotic heart disease of native coronary artery with unspecified angina pectoris (principal); E11.65 Type 2 diabetes mellitus with hyperglycemia; I10 Essential (primary) hypertension; K04.7 Periapical abscess without sinus; I25.2 Old myocardial infarction; F17.210 Nicotine dependence, cigarettes, uncomplicated; Z95.5 Presence of coronary angioplasty implant and graft; Z79.84 Long term (current) use of oral hypoglycemic drugs; Z79.4 Long term (current) use of insulin
CPT/HCPCS: G0378

== ENCOUNTER 2023-06-28 00:32 | Observation (INO) | payer OTHER ==
[~2023-06-28] VITALS: Ht 172.7 cm; Wt 68.4 kg
[2023-06-28] VITALS (17 sets, daily range): BP systolic 98–141; BP diastolic 62–90
[~2023-06-28 00:32] MED LIST changes: +AMOX/K CLAV875 M1 PO; +ATORVASTATIN CA80 MG PO; +CLOPIDOGREL75 MG PO; +JARDIANCE25 MG; +LEVEMIR100 UNIT SC; +METFORMIN HCL500 M1 PO; +PAROXETINE HCL20 MG PO; +TOPROL XL25 MG PO
[2023-06-28 01:28] LABS: BASO% 0.2 % (0-3); EOS% 1.7 % (0-8); IMMATURE GRANULOCYTES 0.8 % (0.0-5.0); LYMPH% 16.7 % (15-41); MEAN CELL VOLUME 102.3 fL CALC (80.0-100.0); MEAN CORPUSCULAR HGB 33.7 pG CALC (26.0-32.0); MONO% 5.9 % (2-13); NEUT# 11.55 thou/uL (1.82-7.42); NEUT% 74.7 % (42-76); RED BLOOD COUNT 4.27 mill/uL (4.70-6.10)
[2023-06-28 01:29] LABS: HEMATOCRIT 43.7 % (39.0-50.0); HEMOGLOBIN 14.4 g/dl (14.0-18.0)
[2023-06-28 01:38] LABS: ALKALINE PHOSPHATASE 94 u/l (38-126); ANION GAP 15 (6-22 (CALC)); BUN 7 mg/dL (9-20); BUN/CREATININE RATIO 7 (12-20 (CALC)); CARBON DIOXIDE 28 mmol/l (22-30); CHLORIDE 100 mmol/l (95-108); GFR FOR AFR.AMER. > 60 ML/MIN (>=60 (CALC)); GFR OTHER RACES > 60 ML/MIN (>=60 (CALC)); POTASSIUM 3.6 mmol/l (3.5-5.1); SGOT/AST 32 u/l (17-59); SODIUM 139 mmol/l (137-146)
[2023-06-28 01:39] LABS: ALBUMIN 4.8 g/dL (3.2-5.0); BILIRUBIN, TOTAL 1.3 mg/dL (0.2-1.3); TOTAL PROTEIN 9.2 g/dL (6.3-8.2)
[2023-06-28 01:49] LABS: D-DIMER 0.48 mg/L (0.19-0.60)
[2023-06-28 01:53] LABS: INTERNATIONAL NORMALIZED RATIO 1.1 RATIO (0.7-1.3); PROTHROMBIN TIME 10.1 SECONDS (9.0-12.5)
[2023-06-28 01:54] LABS: ACT PARTIAL THROMBO TIME 26.7 SECONDS (20.0-32.5)
[2023-06-28 12:34] LABS: ALKALINE PHOSPHATASE 80 u/l (38-126); ANION GAP 9 (6-22 (CALC)); BUN 10 mg/dL (9-20); BUN/CREATININE RATIO 12 (12-20 (CALC)); CARBON DIOXIDE 30 mmol/l (22-30); CHLORIDE 103 mmol/l (95-108); CREATININE 0.8 mg/dL (0.7-1.3); GFR FOR AFR.AMER. > 60 ML/MIN (>=60 (CALC)); GFR OTHER RACES > 60 ML/MIN (>=60 (CALC)); POTASSIUM 3.4 mmol/l (3.5-5.1); SGOT/AST 38 u/l (17-59); SODIUM 139 mmol/l (137-146)
[2023-06-28 12:52] LABS: ALBUMIN 3.5 g/dL (3.2-5.0); TOTAL PROTEIN 6.7 g/dL (6.3-8.2)
[2023-06-28 13:24] LABS: BASO% 0.2 % (0-3); IMMATURE GRANULOCYTES 0.2 % (0.0-5.0); LYMPH% 26.3 % (15-41); MEAN CELL VOLUME 102.3 fL CALC (80.0-100.0); MEAN CORPUSCULAR HGB 33.5 pG CALC (26.0-32.0); MEAN CORPUSCULAR HGB CONC 32.8 g/dL CAL (32.0-36.0); MONO% 8.1 % (2-13); NEUT# 7.9 thou/uL (1.82-7.42); NEUT% 63.2 % (42-76); RED BLOOD COUNT 3.49 mill/uL (4.70-6.10)
[2023-06-28 14:01] LABS: HEMATOCRIT 35.7 % (39.0-50.0); HEMOGLOBIN 11.7 g/dl (14.0-18.0)
[2023-06-28] MEDS ORDERED: CLOPIDOGREL75 MG PO (16:31)
[2023-06-28] MEDS ORDERED: TOPROL XL25 MG PO (16:32)
[2023-06-28] MEDS ORDERED: LEVEMIR100 UNIT SC (16:32)
[2023-06-28] MEDS ORDERED: ATORVASTATIN CA80 MG PO (16:32)
== END 2023-06-28 17:57 | disposition home or self-care (01) ==
LOC: ED 00:32 → ED-I 04:50 → ED 05:10 → MS2 05:11
PROVIDERS: Emergency Medicine; ADMIT Student in an Organized Health Care Education/Training Program; ATTEND Student in an Organized Health Care Education/Training Program
DX: R07.9 Chest pain, unspecified (principal); I10 Essential (primary) hypertension; E11.9 Type 2 diabetes mellitus without complications; I25.10 Atherosclerotic heart disease of native coronary artery without angina pectoris; K21.9 Gastro-esophageal reflux disease without esophagitis; I25.2 Old myocardial infarction; F17.200 Nicotine dependence, unspecified, uncomplicated; T45.526A Underdosing of antithrombotic drugs, initial encounter; Z91.128 Patient's intentional underdosing of medication regimen for other reason; Z95.5 Presence of coronary angioplasty implant and graft; Z79.84 Long term (current) use of oral hypoglycemic drugs; Z79.4 Long term (current) use of insulin; Z86.14 Personal history of Methicillin resistant Staphylococcus aureus infection; Z79.02 Long term (current) use of antithrombotics/antiplatelets; Z91.199 Patient's noncompliance with other medical treatment and regimen due to unspecified reason
CPT/HCPCS: G0378

== ENCOUNTER 2024-03-20 17:21 | Observation (INO) | payer OTHER ==
[~2024-03-20] VITALS: Ht 172.7 cm; Wt 63.0 kg
[2024-03-20] VITALS (11 sets, daily range): BP systolic 116–158; BP diastolic 68–83
[~2024-03-20 17:21] MED LIST changes: +BACLOFEN10 MG PO; +LEVEMIR100 UNIT; +MIRALAX17 GM PO; +PROTONIX40 M2 PO; +PROTONIX40 M4 PO; +REGLAN10 MG PO; +[UNRECOGNIZED DRUG - OTHER] PO
[2024-03-20] MEDS ORDERED: NITROGLYCERIN 0.4 MG/TAB SL ONE (17:45)
[2024-03-20 18:18] LABS: BASO% 0.3 % (0-3); HEMOGLOBIN 12.5 g/dl (14.0-18.0); IMMATURE GRANULOCYTES 0.1 % (0.0-5.0); LYMPH% 21.7 % (15-41); MEAN CELL VOLUME 99.7 fL CALC (80.0-100.0); MEAN CORPUSCULAR HGB 33.7 pG CALC (26.0-32.0); MEAN CORPUSCULAR HGB CONC 33.8 g/dL CAL (32.0-36.0); MONO% 4.3 % (2-13); NEUT# 6.42 thou/uL (1.82-7.42); NEUT% 71.6 % (42-76); RED BLOOD COUNT 3.71 mill/uL (4.70-6.10); RED CELL DISTRI WIDTH 11.7 % (11.5-15.5)
[2024-03-20] MEDS ORDERED: NITROGLYCERIN 0.4 MG/TAB SL PRN ×2 (18:45→20:25)
[2024-03-20] MEDS ORDERED: MORPHINE SULFATE 4 MG/ML VIAL IV ONE (18:50)
[2024-03-20 19:16] LABS: ALBUMIN 4.2 g/dL (3.2-5.0); ALKALINE PHOSPHATASE 72 u/l (38-126); ANION GAP 7 (6-22 (CALC)); BUN 12 mg/dL (9-20); BUN/CREATININE RATIO 14 (12-20 (CALC)); CARBON DIOXIDE 29 mmol/l (22-30); CHLORIDE 106 mmol/l (95-108); CREATININE 0.8 mg/dL (0.7-1.3); ESTIMATED GFR 110 ML/MIN (>=90 (CALC)); LIPASE 134 u/l (23-300); POTASSIUM 3.8 mmol/l (3.5-5.1); SGOT/AST 26 u/l (17-59); SODIUM 138 mmol/l (137-146); TOTAL PROTEIN 7.8 g/dL (6.3-8.2)
[2024-03-20 19:40] LABS: ACT PARTIAL THROMBO TIME 26.7 SECONDS (20.0-32.5); INTERNATIONAL NORMALIZED RATIO 1.2 RATIO (0.7-1.3)
[2024-03-20 19:42] LABS: PROTHROMBIN TIME 10.9 SECONDS (9.0-12.5)
[2024-03-20 19:52] LABS: URINE BLOOD DIPSTICK Trace-lysed (NEGATIVE); URINE GLUCOSE - DIPSTICK 250 mg/dL (NEGATIVE); URINE KETONE 15 mg/dL (NEGATIVE); URINE LEUK ESTERASE Negative (NEGATIVE); URINE NITRITE - DIPSTICK Negative (Negative); URINE PH 5.5 (4.5-8.0); URINE PROTEIN - DIPSTICK >=300 mg/dL (NEG-TRACE); URINE SPECIFIC GRAVITY >=1.030
[2024-03-20 19:54] LABS: URINE COLOR Dark yellow
[2024-03-20] MEDS ORDERED: Zaleplon 5 MG/CAP PO PRN (19:55)
[2024-03-20] MEDS ORDERED: ACETAMINOPHEN 325 MG/TAB PO PRN (19:55)
[2024-03-20] MEDS ORDERED: MAGNESIUM HYDROXIDE 30 ML UDC PO PRN (19:55)
[2024-03-20 20:01] LABS: URINE MUCUS MODERATE hpf (NONE-FEW); URINE RBC 0-2 RBC/hpf (0-5); URINE WBC 0-2 WBC/hpf (0-5)
[2024-03-20 20:02] LABS: URINE HYALINE CAST FEW lpf (NONE-RARE)
[2024-03-20] MEDS ORDERED: ENOXAPARIN SODIUM 40 MG/0.4 ML SYR SC SCH (21:00)
[2024-03-20] MEDS ORDERED: INSULIN LISPRO 100 UNITS/ML ML SC SCH (21:00)
[2024-03-21] VITALS: BP 116/68
[2024-03-21 04:47] VITALS: BP 130/79
[2024-03-21 05:00] VITALS: BP 130/79
[2024-03-21 06:17] LABS: BASO% 0.3 % (0-3); EOS% 2.4 % (0-8); HEMATOCRIT 36.7 % (39.0-50.0); HEMOGLOBIN 12.3 g/dl (14.0-18.0); LYMPH% 37.7 % (15-41); MEAN CELL VOLUME 101.1 fL CALC (80.0-100.0); MEAN CORPUSCULAR HGB 33.9 pG CALC (26.0-32.0); MEAN CORPUSCULAR HGB CONC 33.5 g/dL CAL (32.0-36.0); MONO% 7.8 % (2-13); NEUT# 3.92 thou/uL (1.82-7.42); NEUT% 51.8 % (42-76); RED BLOOD COUNT 3.63 mill/uL (4.70-6.10); RED CELL DISTRI WIDTH 11.7 % (11.5-15.5)
[2024-03-21 06:33] LABS: ALBUMIN 3.7 g/dL (3.2-5.0); BILIRUBIN, TOTAL 1.4 mg/dL (0.2-1.3); CREATININE 0.7 mg/dL (0.7-1.3); POTASSIUM 3.6 mmol/l (3.5-5.1); TOTAL PROTEIN 6.9 g/dL (6.3-8.2)
[2024-03-21 07:24] VITALS: BP 122/69
[2024-03-21] MEDS ORDERED: NITROSTAT0.4 MG SL (09:33)
[2024-03-21] MEDS ORDERED: PROTONIX40 M2 PO (09:37)
== END 2024-03-21 12:57 | disposition home or self-care (01) ==
LOC: ED 17:21 → ED-I 19:25 → ED 19:46 → MS2 19:46
PROVIDERS: Family Medicine; Nurse Practitioner Family; ADMIT Internal Medicine; ATTEND Internal Medicine
DX: R07.89 Other chest pain (principal); I10 Essential (primary) hypertension; E11.9 Type 2 diabetes mellitus without complications; I25.10 Atherosclerotic heart disease of native coronary artery without angina pectoris; I25.2 Old myocardial infarction; K21.9 Gastro-esophageal reflux disease without esophagitis; F17.200 Nicotine dependence, unspecified, uncomplicated; Z79.84 Long term (current) use of oral hypoglycemic drugs; Z95.5 Presence of coronary angioplasty implant and graft; Z79.4 Long term (current) use of insulin; Z86.14 Personal history of Methicillin resistant Staphylococcus aureus infection
CPT/HCPCS: G0378; J1650

== ENCOUNTER 2024-04-03 11:45 | Observation (INO) | payer OTHER ==
[~2024-04-03] VITALS: Ht 172.7 cm; Wt 62.0 kg
[2024-04-03] VITALS (22 sets, daily range): BP systolic 110–168; BP diastolic 56–106
[~2024-04-03 11:45] MED LIST changes: +NITROSTAT0.4 MG SL
[2024-04-03] MEDS ORDERED: PROMETHAZINE HCL 25 MG/ML AMP IM ONE (12:10)
[2024-04-03 12:18] LABS: BASO% 0.3 % (0-3); EOS% 1.8 % (0-8); HEMATOCRIT 37.2 % (39.0-50.0); HEMOGLOBIN 12.1 g/dl (14.0-18.0); IMMATURE GRANULOCYTES 0.2 % (0.0-5.0); LYMPH% 19.2 % (15-41); MEAN CELL VOLUME 101.1 fL CALC (80.0-100.0); MEAN CORPUSCULAR HGB 32.9 pG CALC (26.0-32.0); MEAN CORPUSCULAR HGB CONC 32.5 g/dL CAL (32.0-36.0); MONO% 4.5 % (2-13); NEUT# 7.87 thou/uL (1.82-7.42); RED BLOOD COUNT 3.68 mill/uL (4.70-6.10); RED CELL DISTRI WIDTH 11.7 % (11.5-15.5)
[2024-04-03 12:42] LABS: ALBUMIN 4.3 g/dL (3.2-5.0); ALKALINE PHOSPHATASE 66 u/l (38-126); ANION GAP 6 (6-22 (CALC)); BILIRUBIN, TOTAL 0.9 mg/dL (0.2-1.3); CARBON DIOXIDE 33 mmol/l (22-30); CHLORIDE 106 mmol/l (95-108); POTASSIUM 3.9 mmol/l (3.5-5.1); SGOT/AST 31 u/l (17-59); SODIUM 141 mmol/l (137-146)
[2024-04-03 12:47] LABS: BUN 15 mg/dL (9-20); BUN/CREATININE RATIO 19 (12-20 (CALC)); CREATININE 0.8 mg/dL (0.7-1.3); ESTIMATED GFR 110 ML/MIN (>=90 (CALC))
[2024-04-03] MEDS ORDERED: ONDANSETRON HCl 4 MG/2 ML SDV IV ONE (13:00)
[2024-04-03] MEDS ORDERED: MORPHINE SULFATE 4 MG/ML VIAL IV ONE (14:15)
[2024-04-03] MEDS ORDERED: MORPHINE SULFATE 4 MG/ML VIAL IV PRN (16:00)
[2024-04-03] MEDS ORDERED: MAGNESIUM HYDROXIDE 30 ML UDC PO PRN (16:00)
[2024-04-03] MEDS ORDERED: NITROGLYCERIN 0.4 MG/TAB SL PRN (16:00)
[2024-04-03] MEDS ORDERED: SODIUM CHLORIDE 0.9% 1,000 ML IV PRN (16:00)
[2024-04-03] MEDS ORDERED: ACETAMINOPHEN 325 MG/TAB PO PRN (16:00)
[2024-04-03] MEDS ORDERED: DEXTROSE 250 ML IV PRN ×2 (16:05)
[2024-04-03] MEDS ORDERED: INSULIN LISPRO 100 UNITS/ML ML SC SCH (17:00)
[2024-04-03] MEDS ORDERED: INSULIN DETEMIR 100 UNITS/ML SC SCH (21:00)
[2024-04-03] MEDS ORDERED: METOPROLOL TARTRATE 25 MG/TAB PO SCH (21:00)
[2024-04-03] MEDS ORDERED: ATORVASTATIN CALCIUM 40 MG/TAB PO SCH (21:00)
[2024-04-03] MEDS ORDERED: ENOXAPARIN SODIUM 40 MG/0.4 ML SYR SC SCH (21:00)
[2024-04-03] MEDS ORDERED: IBUPROFEN 600 MG/TAB PO PRN (22:05)
[2024-04-04] VITALS: BP 111/63
[2024-04-04 04:00] VITALS: BP 122/69
[2024-04-04 05:02] VITALS: BP 122/69
[2024-04-04 05:51] LABS: CHOLESTEROL HDL RATIO 2.2 (<4.4 (CALC)); MAGNESIUM 1.9 mg/dL (1.6-2.3)
[2024-04-04 07:11] VITALS: BP 124/71
[2024-04-04 08:32] VITALS: BP 121/77
[2024-04-04] MEDS ORDERED: PANTOPRAZOLE SODIUM Sesquihydr 40 MG/TAB PO SCH (09:00)
[2024-04-04] MEDS ORDERED: CLOPIDOGREL BISULFATE 75 MG/TAB TAB PO SCH (09:00)
[2024-04-04] MEDS ORDERED: ASPIRIN 81 MG/TAB PO SCH (09:00)
[2024-04-04] MEDS ORDERED: ATORVASTATIN CA40 MG PO (15:41)
[2024-04-04] MEDS ORDERED: ASPIRIN 81 LOW81 MG PO (15:42)
== END 2024-04-04 17:15 | disposition home or self-care (01) | DRG 313 ==
LOC: ED 11:45 → ED-I 15:03 → ED 15:18 → MS2 15:19
PROVIDERS: Family Medicine; ADMIT Student in an Organized Health Care Education/Training Program; ATTEND Student in an Organized Health Care Education/Training Program
DX: R07.89 Other chest pain (principal); I10 Essential (primary) hypertension; E11.9 Type 2 diabetes mellitus without complications; I25.10 Atherosclerotic heart disease of native coronary artery without angina pectoris; E78.5 Hyperlipidemia, unspecified; K21.9 Gastro-esophageal reflux disease without esophagitis; I25.2 Old myocardial infarction; F17.200 Nicotine dependence, unspecified, uncomplicated; Z95.5 Presence of coronary angioplasty implant and graft; Z79.84 Long term (current) use of oral hypoglycemic drugs; Z79.4 Long term (current) use of insulin; Z86.14 Personal history of Methicillin resistant Staphylococcus aureus infection; Z91.148 Patient's other noncompliance with medication regimen for other reason; Z82.49 Family history of ischemic heart disease and other diseases of the circulatory system
CPT/HCPCS: G0378; J1650

== ENCOUNTER 2024-04-09 15:36 | Observation (INO) | payer OTHER ==
[~2024-04-09] VITALS: Ht 172.7 cm; Wt 61.0 kg
[2024-04-09] VITALS (20 sets, daily range): BP systolic 113–175; BP diastolic 67–133
[~2024-04-09 15:36] MED LIST changes: +ASPIRIN 81 LOW81 MG PO; +ATORVASTATIN CA40 MG PO; -JARDIANCE25 MG; +JARDIANCE25 MG PO
[2024-04-09] MEDS ORDERED: Pantoprazole Sodium 40 MG VIAL (Protonix) IV ONE (15:40)
[2024-04-09] MEDS ORDERED: ASPIRIN 81 MG/TAB PO ONE (15:40)
[2024-04-09] MEDS ORDERED: ONDANSETRON HCl 4 MG/2 ML SDV IV ONE (15:45)
[2024-04-09] MEDS ORDERED: SODIUM CHLORIDE 0.9% 1,000 ML IV ONE (15:45)
[2024-04-09 16:01] LABS: BASO% 0.3 % (0-3); EOS% 2.5 % (0-8); HEMATOCRIT 36.7 % (39.0-50.0); HEMOGLOBIN 12.3 g/dl (14.0-18.0); IMMATURE GRANULOCYTES 0.1 % (0.0-5.0); MEAN CELL VOLUME 101.1 fL CALC (80.0-100.0); MEAN CORPUSCULAR HGB 33.9 pG CALC (26.0-32.0); MEAN CORPUSCULAR HGB CONC 33.5 g/dL CAL (32.0-36.0); MONO% 4.9 % (2-13); NEUT# 7.48 thou/uL (1.82-7.42); NEUT% 72.2 % (42-76); RED BLOOD COUNT 3.63 mill/uL (4.70-6.10)
[2024-04-09 16:19] LABS: ALBUMIN 4.5 g/dL (3.2-5.0); ALKALINE PHOSPHATASE 76 u/l (38-126); ANION GAP 10 (6-22 (CALC)); BUN 9 mg/dL (9-20); BUN/CREATININE RATIO 11 (12-20 (CALC)); CARBON DIOXIDE 29 mmol/l (22-30); CHLORIDE 106 mmol/l (95-108); CPK 205 u/l (55-170); CREATININE 0.8 mg/dL (0.7-1.3); ESTIMATED GFR 110 ML/MIN (>=90 (CALC)); LIPASE 53 u/l (23-300); POTASSIUM 3.7 mmol/l (3.5-5.1); SGOT/AST 27 u/l (17-59); SODIUM 142 mmol/l (137-146); TOTAL PROTEIN 8.6 g/dL (6.3-8.2)
[2024-04-09] MEDS ORDERED: ALUM & MAG HYDROX-SIMETHICONE 30 ML PO ONE (16:45)
[2024-04-09] MEDS ORDERED: LIDOCAINE VISCOUS 2% 15 ML UDC PO ONE (16:45)
[2024-04-09] MEDS ORDERED: PROMETHAZINE HCL 25 MG/ML AMP IM ONE (17:45)
[2024-04-09] MEDS ORDERED: NITROGLYCERIN 0.4 MG/TAB SL PRN (20:00)
[2024-04-09] MEDS ORDERED: MAGNESIUM HYDROXIDE 30 ML UDC PO PRN (20:00)
[2024-04-09] MEDS ORDERED: MORPHINE SULFATE 4 MG/ML VIAL IV PRN (20:00)
[2024-04-09] MEDS ORDERED: ACETAMINOPHEN 325 MG/TAB PO PRN (20:00)
[2024-04-09] MEDS ORDERED: SODIUM CHLORIDE 0.9% 1,000 ML IV PRN (20:00)
[2024-04-09] MEDS ORDERED: ONDANSETRON HCl 4 MG/2 ML SDV IV PRN (20:05)
[2024-04-09] MEDS ORDERED: hydrALAZINE HCL 20 MG/ML VIAL(1 ML) IV PRN (20:05)
[2024-04-09] MEDS ORDERED: ENOXAPARIN SODIUM 40 MG/0.4 ML SYR SC SCH (21:00)
[2024-04-09] MEDS ORDERED: METOPROLOL TARTRATE 25 MG/TAB PO SCH (21:00)
[2024-04-09] MEDS ORDERED: INSULIN DETEMIR 100 UNITS/ML SC SCH (21:00)
[2024-04-09] MEDS ORDERED: INSULIN LISPRO 100 UNITS/ML ML SC SCH (21:00)
[2024-04-09] MEDS ORDERED: ATORVASTATIN CALCIUM 40 MG/TAB PO SCH (21:00)
[2024-04-10 00:09] VITALS: BP 113/68
[2024-04-10 04:00] VITALS: BP 116/65
[2024-04-10 04:43] VITALS: BP 116/65
[2024-04-10 06:23] LABS: BASO% 0.2 % (0-3); HEMATOCRIT 32.6 % (39.0-50.0); HEMOGLOBIN 10.8 g/dl (14.0-18.0); LYMPH% 28.2 % (15-41); MEAN CELL VOLUME 102.5 fL CALC (80.0-100.0); MEAN CORPUSCULAR HGB CONC 33.1 g/dL CAL (32.0-36.0); NEUT# 5.38 thou/uL (1.82-7.42); NEUT% 62.6 % (42-76); RED BLOOD COUNT 3.18 mill/uL (4.70-6.10); RED CELL DISTRI WIDTH 12.2 % (11.5-15.5)
[2024-04-10 06:40] LABS: BILIRUBIN, TOTAL 1.1 mg/dL (0.2-1.3); CREATININE 0.8 mg/dL (0.7-1.3); MAGNESIUM 1.8 mg/dL (1.6-2.3); POTASSIUM 3.5 mmol/l (3.5-5.1)
[2024-04-10 06:41] LABS: ALBUMIN 3.4 g/dL (3.2-5.0); TOTAL PROTEIN 6.4 g/dL (6.3-8.2)
[2024-04-10 06:51] VITALS: BP 122/74
[2024-04-10 06:54] LABS: URINE BLOOD DIPSTICK Negative (NEGATIVE); URINE COLOR Yellow; URINE GLUCOSE - DIPSTICK 500 mg/dL (NEGATIVE); URINE KETONE Trace mg/dL (NEGATIVE); URINE LEUK ESTERASE Negative (NEGATIVE); URINE NITRITE - DIPSTICK Negative (Negative); URINE PH 7.5 (4.5-8.0); URINE PROTEIN - DIPSTICK 100 mg/dL (NEG-TRACE)
[2024-04-10 07:01] LABS: URINE MUCUS FEW hpf (NONE-FEW); URINE SQUAMOUS EPITHELIAL CELL FEW EPI/hpf (0-FEW)
[2024-04-10 08:48] VITALS: BP 122/74
[2024-04-10] MEDS ORDERED: PANTOPRAZOLE SODIUM Sesquihydr 40 MG/TAB PO SCH (09:00)
[2024-04-10] MEDS ORDERED: CLOPIDOGREL BISULFATE 75 MG/TAB TAB PO SCH (09:00)
[2024-04-10] MEDS ORDERED: ASPIRIN 81 MG/TAB PO SCH (09:00)
[2024-04-10] MEDS ORDERED: PLAVIX75 MG PO (10:10)
== END 2024-04-10 10:55 | disposition home or self-care (01) | DRG 313 ==
LOC: ED 15:36 → ED-I 19:15 → ED 19:45 → MS2 19:46
PROVIDERS: Family Medicine; ADMIT Student in an Organized Health Care Education/Training Program; ATTEND Student in an Organized Health Care Education/Training Program
DX: R07.89 Other chest pain (principal); R52 Pain, unspecified; I10 Essential (primary) hypertension; E11.9 Type 2 diabetes mellitus without complications; I25.10 Atherosclerotic heart disease of native coronary artery without angina pectoris; K21.9 Gastro-esophageal reflux disease without esophagitis; E78.5 Hyperlipidemia, unspecified; I25.2 Old myocardial infarction; F11.10 Opioid abuse, uncomplicated; F14.10 Cocaine abuse, uncomplicated; F12.10 Cannabis abuse, uncomplicated; F17.200 Nicotine dependence, unspecified, uncomplicated; Z86.14 Personal history of Methicillin resistant Staphylococcus aureus infection; Z95.5 Presence of coronary angioplasty implant and graft; Z79.84 Long term (current) use of oral hypoglycemic drugs; Z79.4 Long term (current) use of insulin; Z82.49 Family history of ischemic heart disease and other diseases of the circulatory system
CPT/HCPCS: G0378; J1650; J2470

== ENCOUNTER 2024-05-07 11:00 | Emergency (ER) | payer OTHER ==
[2024-05-07] VITALS (25 sets, daily range): BP systolic 108–170; BP diastolic 61–100
[~2024-05-07] VITALS: Ht 172.7 cm; Wt 63.5 kg
[~2024-05-07 11:00] MED LIST changes: +PLAVIX75 MG PO
[2024-05-07] MEDS ORDERED: SODIUM CHLORIDE 0.9% 1,000 ML IV STA (11:39)
[2024-05-07] MEDS ORDERED: ONDANSETRON HCl 4 MG/2 ML SDV IV STA (11:39)
[2024-05-07] MEDS ORDERED: Pantoprazole Sodium 40 MG VIAL (Protonix) IV STA (11:39)
[2024-05-07 11:40] LABS: BASO% 0.1 % (0-3); HEMATOCRIT 37.6 % (39.0-50.0); HEMOGLOBIN 12.6 g/dl (14.0-18.0); IMMATURE GRANULOCYTES 0.1 % (0.0-5.0); LYMPH% 9.6 % (15-41); MEAN CELL VOLUME 101.1 fL CALC (80.0-100.0); MEAN CORPUSCULAR HGB 33.9 pG CALC (26.0-32.0); MEAN CORPUSCULAR HGB CONC 33.5 g/dL CAL (32.0-36.0); MONO% 3.5 % (2-13); NEUT# 15.7 thou/uL (1.82-7.42); NEUT% 86.7 % (42-76); RED BLOOD COUNT 3.72 mill/uL (4.70-6.10)
[2024-05-07 12:00] LABS: ALKALINE PHOSPHATASE 76 u/l (38-126); AMYLASE 71 u/l (30-110); BILIRUBIN, TOTAL 1.4 mg/dL (0.2-1.3); BUN 20 mg/dL (9-20); BUN/CREATININE RATIO 22 (12-20 (CALC)); CREATININE 0.9 mg/dL (0.7-1.3); ESTIMATED GFR 106 ML/MIN (>=90 (CALC)); LIPASE 32 u/l (23-300); POTASSIUM 3.6 mmol/l (3.5-5.1); SGOT/AST 31 u/l (17-59); SODIUM 137 mmol/l (137-146)
[2024-05-07 12:02] LABS: ALBUMIN 4.8 g/dL (3.2-5.0); ANION GAP 13 (6-22 (CALC)); CARBON DIOXIDE 34 mmol/l (22-30); CHLORIDE 94 mmol/l (95-108)
[2024-05-07] MEDS ORDERED: PROMETHAZINE HCL 25 MG/ML AMP IM ONE (13:00)
[2024-05-07 16:59] LABS: URINE BLOOD DIPSTICK Trace-lysed (NEGATIVE); URINE GLUCOSE - DIPSTICK 500 mg/dL (NEGATIVE); URINE KETONE 40 mg/dL (NEGATIVE); URINE LEUK ESTERASE Negative (NEGATIVE); URINE NITRITE - DIPSTICK Negative (Negative); URINE PH 8.5 (4.5-8.0); URINE PROTEIN - DIPSTICK >=300 mg/dL (NEG-TRACE); URINE SPECIFIC GRAVITY 1.015
[2024-05-07 17:01] LABS: URINE COLOR Yellow; URINE RBC 0-2 RBC/hpf (0-5); URINE WBC 0-2 WBC/hpf (0-5)
[2024-05-07] MEDS ORDERED: SODIUM CHLORIDE 0.9% 1,000 ML IV ONE (17:25)
== END 2024-05-07 18:17 | disposition home or self-care (01) | DRG 392 ==
LOC: ED 11:00
PROVIDERS: Emergency Medicine
DX: R10.84 Generalized abdominal pain (principal); E86.0 Dehydration; R11.2 Nausea with vomiting, unspecified; I10 Essential (primary) hypertension; E11.9 Type 2 diabetes mellitus without complications; I25.10 Atherosclerotic heart disease of native coronary artery without angina pectoris; K21.9 Gastro-esophageal reflux disease without esophagitis; J44.9 Chronic obstructive pulmonary disease, unspecified; F17.210 Nicotine dependence, cigarettes, uncomplicated; I25.2 Old myocardial infarction; Z86.14 Personal history of Methicillin resistant Staphylococcus aureus infection; Z95.5 Presence of coronary angioplasty implant and graft; Z79.84 Long term (current) use of oral hypoglycemic drugs; Z79.4 Long term (current) use of insulin
CPT/HCPCS: J2470; Q9967

== ENCOUNTER 2024-06-04 01:33 | Emergency (ER) | payer OTHER ==
[~2024-06-04] VITALS: Ht 172.7 cm; Wt 58.0 kg
[2024-06-04 01:40] VITALS: BP 174/77
[2024-06-04] MEDS ORDERED: AMOXICILLIN 400 MG/5 ML BTL PO ONE (01:40)
[2024-06-04] MEDS ORDERED: PROMETHAZINE HCL 25 MG/ML AMP IV ONE (02:05)
[2024-06-04] MEDS ORDERED: SODIUM CHLORIDE 0.9% 1,000 ML IV ONE (02:05)
[2024-06-04] MEDS ORDERED: KETOROLAC TROMETHAMINE 30 MG/ML SDV IV ONE (02:05)
[2024-06-04 02:11] LABS: BASO% 0.3 % (0-3); EOS% 2.9 % (0-8); HEMATOCRIT 35.9 % (39.0-50.0); HEMOGLOBIN 12.1 g/dl (14.0-18.0); IMMATURE GRANULOCYTES 0.6 % (0.0-5.0); MEAN CELL VOLUME 99.7 fL CALC (80.0-100.0); MEAN CORPUSCULAR HGB 33.6 pG CALC (26.0-32.0); MEAN CORPUSCULAR HGB CONC 33.7 g/dL CAL (32.0-36.0); MONO% 5.5 % (2-13); NEUT# 6.48 thou/uL (1.82-7.42); NEUT% 68.7 % (42-76); RED BLOOD COUNT 3.6 mill/uL (4.70-6.10); RED CELL DISTRI WIDTH 12.6 % (11.5-15.5)
[2024-06-04 02:18] VITALS: BP 148/58
[2024-06-04 02:28] LABS: ALBUMIN 4.3 g/dL (3.2-5.0); ALKALINE PHOSPHATASE 72 u/l (38-126); BILIRUBIN, TOTAL 1.2 mg/dL (0.2-1.3); BUN 9 mg/dL (9-20); BUN/CREATININE RATIO 12 (12-20 (CALC)); CARBON DIOXIDE 28 mmol/l (22-30); CREATININE 0.8 mg/dL (0.7-1.3); ESTIMATED GFR 109 ML/MIN (>=90 (CALC)); ETHYL ALCOHOL 0 mg/dl (0-30); LIPASE 35 u/l (23-300); POTASSIUM 3.5 mmol/l (3.5-5.1); SGOT/AST 26 u/l (17-59); SODIUM 141 mmol/l (137-146); TOTAL PROTEIN 7.9 g/dL (6.3-8.2)
[2024-06-04 02:30] LABS: ACT PARTIAL THROMBO TIME 27.3 SECONDS (20.0-32.5); ANION GAP 11 (6-22 (CALC)); CHLORIDE 106 mmol/l (95-108); INTERNATIONAL NORMALIZED RATIO 1.2 RATIO (0.7-1.3)
[2024-06-04 02:35] LABS: PROTHROMBIN TIME 11.1 SECONDS (9.0-12.5)
[2024-06-04 03:03] VITALS: BP 121/62
[2024-06-04] MEDS ORDERED: LACTATED RINGER'S 1,000 ML IV ONE (03:15)
[2024-06-04] MEDS ORDERED: TYLENOL # 31 TA1 PO (03:55)
[2024-06-04] MEDS ORDERED: Acetaminophen 300 MG/Codeine 30 MG/COMBO PO ONE (04:00)
[2024-06-04 04:11] VITALS: BP 121/62
== END 2024-06-04 04:11 | disposition home or self-care (01) | DRG 605 ==
LOC: ED 01:33
PROVIDERS: Family Medicine
DX: S20.212A Contusion of left front wall of thorax, initial encounter (principal); I10 Essential (primary) hypertension; E11.9 Type 2 diabetes mellitus without complications; I25.2 Old myocardial infarction; K21.9 Gastro-esophageal reflux disease without esophagitis; F17.200 Nicotine dependence, unspecified, uncomplicated; W50.0XXA Accidental hit or strike by another person, initial encounter; Y93.89 Activity, other specified; Z86.14 Personal history of Methicillin resistant Staphylococcus aureus infection; Z95.5 Presence of coronary angioplasty implant and graft; Z79.4 Long term (current) use of insulin; Z79.84 Long term (current) use of oral hypoglycemic drugs

== ENCOUNTER 2024-06-05 22:38 | Emergency (ER) | payer OTHER ==
[~2024-06-05] VITALS: Ht 172.7 cm; Wt 70.0 kg
[~2024-06-05 22:38] MED LIST changes: +TYLENOL # 31 TA1 PO
[2024-06-05 23:01] VITALS: BP 109/47
[2024-06-05 23:15] VITALS: BP 103/52
[2024-06-05 23:15] LABS: BASO% 0.1 % (0-3); EOS% 0.4 % (0-8); HEMATOCRIT 34.5 % (39.0-50.0); HEMOGLOBIN 11.6 g/dl (14.0-18.0); IMMATURE GRANULOCYTES 0.1 % (0.0-5.0); LYMPH% 24.1 % (15-41); MEAN CORPUSCULAR HGB 33.6 pG CALC (26.0-32.0); MEAN CORPUSCULAR HGB CONC 33.6 g/dL CAL (32.0-36.0); MONO% 6.3 % (2-13); NEUT# 5.65 thou/uL (1.82-7.42); RED BLOOD COUNT 3.45 mill/uL (4.70-6.10); RED CELL DISTRI WIDTH 12.4 % (11.5-15.5)
[2024-06-05 23:24] LABS: ALBUMIN 4.2 g/dL (3.2-5.0); ALKALINE PHOSPHATASE 61 u/l (38-126); ANION GAP 10 (6-22 (CALC)); BILIRUBIN, TOTAL 1.5 mg/dL (0.2-1.3); BUN 15 mg/dL (9-20); BUN/CREATININE RATIO 17 (12-20 (CALC)); CARBON DIOXIDE 28 mmol/l (22-30); CHLORIDE 103 mmol/l (95-108); CREATININE 0.9 mg/dL (0.7-1.3); ESTIMATED GFR 105 ML/MIN (>=90 (CALC)); POTASSIUM 3.2 mmol/l (3.5-5.1); SGOT/AST 23 u/l (17-59); SODIUM 138 mmol/l (137-146); TOTAL PROTEIN 7.5 g/dL (6.3-8.2)
[2024-06-05 23:31] VITALS: BP 106/48
[2024-06-05 23:46] VITALS: BP 114/51
[2024-06-06 00:01] VITALS: BP 125/55
[2024-06-06 00:15] VITALS: BP 119/64
[2024-06-06] MEDS ORDERED: NITROSTAT0.4 MG SL (00:23)
[2024-06-06] MEDS ORDERED: ASPIRINCHW 81MG PO (00:24)
== END 2024-06-06 00:22 | disposition home or self-care (01) | DRG 313 ==
LOC: ED 22:38
PROVIDERS: Family Medicine
DX: R07.9 Chest pain, unspecified (principal); E11.9 Type 2 diabetes mellitus without complications; I10 Essential (primary) hypertension; I25.10 Atherosclerotic heart disease of native coronary artery without angina pectoris; E78.00 Pure hypercholesterolemia, unspecified; I25.2 Old myocardial infarction; K21.9 Gastro-esophageal reflux disease without esophagitis; Z95.5 Presence of coronary angioplasty implant and graft; F17.200 Nicotine dependence, unspecified, uncomplicated; Z86.14 Personal history of Methicillin resistant Staphylococcus aureus infection

== ENCOUNTER 2024-11-19 20:10 | Emergency (ER) | payer OTHER ==
[~2024-11-19] VITALS: Ht 172.7 cm; Wt 80.0 kg
[~2024-11-19 20:10] MED LIST changes: +ASPIRINCHW 81MG PO; +KEFLEX500 MG PO; +METHOCARBAMOL500 MG PO; +NAPROXEN500 MG PO
[2024-11-19 20:22] VITALS: BP 110/72
[2024-11-19] MEDS ORDERED: PROCHLORPERAZINE EDISYLATE 10 MG/2 ML SDV IV ONE (20:40)
[2024-11-19] MEDS ORDERED: DiphenhydrAMINE HCL 50 MG/ML SDV IV ONE (20:40)
[2024-11-19 20:59] LABS: BASO% 0.1 % (0-3); IMMATURE GRANULOCYTES 0.1 % (0.0-5.0); LYMPH% 12.1 % (15-41); MEAN CELL VOLUME 98.4 fL CALC (80.0-100.0); MEAN CORPUSCULAR HGB 33.2 pG CALC (26.0-32.0); MEAN CORPUSCULAR HGB CONC 33.7 g/dL CAL (32.0-36.0); MONO% 5.2 % (2-13); NEUT# 13.85 thou/uL (1.82-7.42); NEUT% 82.5 % (42-76); RED BLOOD COUNT 4.43 mill/uL (4.70-6.10); RED CELL DISTRI WIDTH 12.6 % (11.5-15.5)
[2024-11-19 21:03] LABS: HEMATOCRIT 43.6 % (39.0-50.0); HEMOGLOBIN 14.7 g/dl (14.0-18.0)
[2024-11-19 22:02] LABS: ALBUMIN 4.6 g/dL (3.2-5.0); ALKALINE PHOSPHATASE 73 u/l (38-126); BUN 34 mg/dL (9-20); BUN/CREATININE RATIO 25 (12-20 (CALC)); CREATININE 1.4 mg/dL (0.7-1.3); ESTIMATED GFR 62 ML/MIN (>=90 (CALC)); LIPASE 25 u/l (23-300); POTASSIUM 3.1 mmol/l (3.5-5.1); SGOT/AST 33 u/l (17-59); SODIUM 135 mmol/l (137-146); TOTAL PROTEIN 8.4 g/dL (6.3-8.2)
[2024-11-19 22:11] LABS: ANION GAP 15 (6-22 (CALC)); BILIRUBIN, TOTAL 2.2 mg/dL (0.2-1.3); CARBON DIOXIDE 35 mmol/l (22-30); CHLORIDE 88 mmol/l (95-108)
[2024-11-19] MEDS ORDERED: POTASSIUM CHLORIDE 20 MEQ/TAB PO ONE (22:25)
[2024-11-19] MEDS ORDERED: SODIUM CHLORIDE 0.9% 1,000 ML IV ONE (23:40)
[2024-11-20 02:01] LABS: URINE BLOOD DIPSTICK Trace-lysed (NEGATIVE); URINE COLOR Yellow; URINE GLUCOSE - DIPSTICK Negative (NEGATIVE); URINE KETONE 40 mg/dL (NEGATIVE); URINE LEUK ESTERASE Negative (NEGATIVE); URINE NITRITE - DIPSTICK Negative (Negative); URINE PROTEIN - DIPSTICK >=300 mg/dL (NEG-TRACE); URINE SPECIFIC GRAVITY >=1.030
[2024-11-20 02:06] LABS: URINE HYALINE CAST MANY lpf (NONE-RARE); URINE WBC 0-2 WBC/hpf (0-5)
[2024-11-20] MEDS ORDERED: ASPIRIN 81 MG/TAB PO ONE (03:00)
[2024-11-20 03:42] VITALS: BP 115/71
== END 2024-11-20 03:42 | disposition home or self-care (01) ==
LOC: ED 20:10
PROVIDERS: Emergency Medicine; Nurse Practitioner
DX: R07.89 Other chest pain (principal); I10 Essential (primary) hypertension; I25.10 Atherosclerotic heart disease of native coronary artery without angina pectoris; E11.9 Type 2 diabetes mellitus without complications; K21.9 Gastro-esophageal reflux disease without esophagitis; I25.2 Old myocardial infarction; F17.200 Nicotine dependence, unspecified, uncomplicated; Z95.5 Presence of coronary angioplasty implant and graft; Z79.84 Long term (current) use of oral hypoglycemic drugs; Z79.4 Long term (current) use of insulin
CPT/HCPCS: J0780; J1200